=== PATIENT | female | born 1980 | race Asian ===

== ENCOUNTER 2022-07-15 18:24 | Emergency (ER) | payer OTHER ==
[2022-07-15 18:46] VITALS: BP 97/56; PULSE 74; RESP 18; TEMP 98.1; BMI 21.2
[2022-07-15] MEDS ORDERED: SODIUM CHLORIDE 1,000 ML IV STA (19:42)
[2022-07-15] MEDS ORDERED: ACETAMINOPHEN 1000 MG/100 ML BAG IVPB ONE (19:42)
[2022-07-15] MEDS ORDERED: ACETAMINOPHEN 500 MG TABLET (FP) PO ONE (19:48)
[2022-07-15] MEDS ORDERED: ACETAMINOPHEN 325 MG TABLET (FP) ONE (20:26)
[2022-07-15 20:38] LABS: BASO % 0.3 % (0-2.0); EOS % 0.2 % (0-4.5); HEMATOCRIT 31.3 % (32.4-45.2); HEMOGLOBIN 10.2 GM/dL (10.7-15.3); LYMPH % 8.8 % (8-40); MCH 25.8 pg (25.7-33.7); MCHC 32.5 g/dl (32.0-36.0); MEAN CELL VOLUME 79.3 fl (80-96); MEAN PLT VOLUME 6.9 fl (7.5-11.1); MONO % 3.5 % (3.8-10.2); NEUT % 87.2 % (42.8-82.8); PLATELET COUNT 265 10^3/uL (134-434); RBC 3.95 M/mm3 (3.60-5.2); RDW 15.8 % (11.6-15.6); WHITE BLOOD COUNT 12.6 K/mm3 (4.0-10.0)
[2022-07-15 22:23] LABS: POTASSIUM 3.6 mmol/L (3.5-5.1)
[2022-07-15 22:26] LABS: CALCIUM 8.6 mg/dL (8.5-10.1)
[2022-07-15 22:27] LABS: ALBUMIN 3.6 g/dl (3.4-5.0); BLOOD UREA NITROGEN 19.6 mg/dL (7-18)
[2022-07-15 22:30] LABS: CREATININE 0.7 mg/dL (0.55-1.3)
[2022-07-15 22:31] LABS: TOT PROT 7.5 g/dl (6.4-8.2)
[2022-07-15 22:32] LABS: BILIRUBIN,TOTAL 0.3 mg/dL (0.2-1)
== END 2022-07-15 22:42 | disposition home or self-care (01) ==
LOC: JER 18:24
PROC: 3E0337Z Introduction of Electrolytic and Water Balance Substance into Peripheral Vein, Percutaneous Approach (ICD-10-PCS; principal; 2022-07-15)
DX: R55 Syncope and collapse (principal)
CPT/HCPCS: 36415; 80053; 84484; 85025; 93005; 93010; 99284-25